=== PATIENT | female | born 1950 | race Caucasian/White ===

== ENCOUNTER 2019-08-29 07:01 | Day surgery (SDC) | payer OTHER | END 2019-08-29 12:45 | disposition home or self-care (01) | LOC: AMB-ENDOS 07:01 | DX: C18.7 Malignant neoplasm of sigmoid colon (principal); D12.5 Benign neoplasm of sigmoid colon ==

== ENCOUNTER 2019-09-11 10:09 | Inpatient (IN) | payer OTHER ==
[~2019-09-11] VITALS: Ht 165.1 cm; Wt 5.0 kg
[2019-09-11] MEDS ORDERED: NORVASC2.5 M1 PO (10:38)
[2019-09-11] MEDS ORDERED: AMBIEN5 MG PO (10:39)
[2019-09-21] MEDS ORDERED: OXYC1TAB9 PO (09:05)
[2019-09-21] MEDS ORDERED: HYOSCYAMINE0.125 M1 SL (09:05)
[2019-09-21] MEDS ORDERED: INTESTINEX680 M1 PO (09:06)
== END 2019-09-21 10:10 | disposition home or self-care (01) | DRG 331 ==
LOC: SURG 09-18 08:27 → O/R 09-18 08:27 → SURH 09-18 09:54 → SURG 09-18 16:38 → SURH 09-20 14:55 → SURG 09-20 15:27 → SURH 09-20 15:29
PROVIDERS: ADMIT Surgery
PROC: 0DBN4ZZ Excision of Sigmoid Colon, Percutaneous Endoscopic Approach (ICD-10-PCS; 2019-09-18)
PROC: 07BC4ZX Excision of Pelvis Lymphatic, Percutaneous Endoscopic Approach, Diagnostic (ICD-10-PCS; 2019-09-18)
PROC: 3E0F7GC Introduction of Other Therapeutic Substance into Respiratory Tract, Via Natural or Artificial Opening (ICD-10-PCS; 2019-09-18)
PROC: 0DBP4ZZ Excision of Rectum, Percutaneous Endoscopic Approach (ICD-10-PCS; principal; 2019-09-18 15:30)
DX: C19 Malignant neoplasm of rectosigmoid junction (principal); I11.9 Hypertensive heart disease without heart failure; J45.20 Mild intermittent asthma, uncomplicated

== ENCOUNTER 2020-08-20 05:21 | Day surgery (SDC) | payer OTHER ==
[~2020-08-20 05:21] MED LIST: AMBIEN5 MG PO; HYOSCYAMINE0.125 M1 SL; INTESTINEX680 M1 PO; NORVASC2.5 M1 PO; OXYC1TAB9 PO
== END 2020-08-20 10:00 | disposition home or self-care (01) ==
LOC: AMB-ENDOS 05:21 → CIR.AMB 13:00
PROVIDERS: ATTEND Surgery
DX: K63.5 Polyp of colon (principal); Z20.822 Contact with and (suspected) exposure to COVID-19

== ENCOUNTER 2025-06-09 10:45 | Inpatient (IN) | payer OTHER ==
[~2025-06-09] VITALS: Ht 157.5 cm; Wt 69.4 kg
[2025-06-09 11:59] VITALS: BP 130/82
[2025-06-12] MEDS ORDERED: VISTASEAL DUAL APPICATOR 1 EACH APPL TOP ONE (08:00)
[2025-06-12] MEDS ORDERED: CLINDAMYCIN PHOSPHATE 150 MG/ML (600mg) IV ONE (08:00)
[2025-06-12] MEDS ORDERED: CHLORHEXIDINE GLUCONATE 120 ML BOTTLE TOP ONE (08:00)
[2025-06-12] MEDS ORDERED: POVIDONE-IODINE 118 ML BOTT TOP ONE (08:00)
[2025-06-12] MEDS ORDERED: METRONIDAZOLE/SODIUM CHLORIDE 500 MG/100 ML PIGGYBACK IV ONE (08:00)
[2025-06-12] MEDS ORDERED: THROMBIN,HU/FIBRINOGEN/CALCIUM 10 ML SYRINGE TOP ONE (08:00)
[2025-06-12] MEDS ORDERED: SUGAMMADEX SODIUM 200 MG/2 ML VIAL IV ONE (09:30)
[2025-06-12] MEDS ORDERED: MORPHINE SULFATE 4 MG/ML VIAL IV PRN (09:45)
[2025-06-12] MEDS ORDERED: OxyCODONE HCL 5 MG TABLET (ROXICODONE) PO PRN (09:45)
[2025-06-12] MEDS ORDERED: KETOROLAC TROMETHAMINE 30 MG VIAL IV ONE (09:45)
[2025-06-12] MEDS ORDERED: RINGERS SOLUTION,LACTATED 1,000 ML IV SCH (09:45)
[2025-06-12] MEDS ORDERED: KETOROLAC TROMETHAMINE 30 MG VIAL ONE (10:54)
[2025-06-12] MEDS ORDERED: ACETAMINOPHEN 500 MG GEL..CAP PO SCH (12:00)
[2025-06-12 12:56] LABS: BASO % 0.4 % (0.1-1.2); EOS # 0.03 (0.04-0.54); EOS % 0.2 % (0.7-7.0); LYMPH # 1.16 (1.18-3.74); LYMPH % 9.2 % (19.3-53.1); MEAN PLATELET VOLUME 10.70 fl (9.4-12.4); MONO # 0.64 (0.24-0.82); MONO % 5.1 % (4.7-12.5); NEUT # 10.60 (1.56-6.13); NEUT % 84.4 % (34.0-71.1); RED CELL DISTRIBUTION WIDTH 13.8 % (11.6-14.4)
[2025-06-12] MEDS ORDERED: SIMETHICONE 125 MG CAPSULE PO SCH (13:00)
[2025-06-12 13:33] LABS: BUN CREA RATIO 20.0 (7.0-25.0); CREATININE SERUM 0.56 mg/dL (0.55-1.02); GFR 105.53; GLUCOSE FASTING 118.0 mg/dL (65-100); OSMOLALITY SERUM 278.0 MOSM/KG (275-295)
[2025-06-12 14:09] VITALS: BP 125/64; O2SAT 95
[2025-06-12] MEDS ORDERED: CEFAZOLIN SODIUM 1,000 MG VIAL IV SCH (17:00)
[2025-06-12] MEDS ORDERED: METOCLOPRAMIDE HCL 5 MG/ML VIAL IV SCH (17:00)
[2025-06-12] MEDS ORDERED: CLINDAMYCIN PHOSPHATE 150 MG/ML (600mg) IV SCH (17:00)
[2025-06-12 18:16] VITALS: BP 136/72
[2025-06-12] MEDS ORDERED: DOCUSATE SODIUM 100MG CAP PO SCH (21:00)
[2025-06-12] MEDS ORDERED: FAMOTIDINE/PF 20 MG/2 ML VIAL IV PUSH SCH (21:00)
[2025-06-12] MEDS ORDERED: GABAPENTIN 300 MG CAPSULE PO SCH (21:00)
[2025-06-12] MEDS ORDERED: CELECOXIB 200 MG CAPSULE PO SCH (21:00)
[2025-06-13] VITALS: BP 126/75
[2025-06-13 01:56] LABS: BASO % 0.4 % (0.1-1.2); EOS # 0.21 (0.04-0.54); EOS % 2.2 % (0.7-7.0); LYMPH # 1.32 (1.18-3.74); LYMPH % 13.6 % (19.3-53.1); MEAN PLATELET VOLUME 10.90 fl (9.4-12.4); MONO # 0.75 (0.24-0.82); MONO % 7.7 % (4.7-12.5); NEUT # 7.36 (1.56-6.13); NEUT % 75.8 % (34.0-71.1); RED CELL DISTRIBUTION WIDTH 13.6 % (11.6-14.4)
[2025-06-13 02:17] LABS: BUN CREA RATIO 15.0 (7.0-25.0); CREATININE SERUM 0.61 mg/dL (0.55-1.02); GFR 95.61; GLUCOSE FASTING 100.0 mg/dL (65-100); OSMOLALITY SERUM 284.0 MOSM/KG (275-295)
[2025-06-13 08:49] VITALS: BP 127/73
[2025-06-13] MEDS ORDERED: ENOXAPARIN SODIUM 40 MG/0.4 ML SYRINGE SUBCUTANEO SCH (09:00)
== END 2025-06-13 12:34 | disposition home or self-care (01) | DRG 743 ==
LOC: ADM 10:45 → EDSTATUS 10:45 → OB/GYN 06-12 07:00 → O/R 06-12 09:00 → OB/GYN 06-12 10:45
PROVIDERS: Obstetrics & Gynecology; ADMIT Obstetrics & Gynecology Gynecologic Oncology; ATTEND Obstetrics & Gynecology Gynecologic Oncology
PROC: 0DBU4ZZ Excision of Omentum, Percutaneous Endoscopic Approach (ICD-10-PCS; 2025-06-12)
PROC: 0UT74ZZ Resection of Bilateral Fallopian Tubes, Percutaneous Endoscopic Approach (ICD-10-PCS; 2025-06-12)
PROC: 0UT24ZZ Resection of Bilateral Ovaries, Percutaneous Endoscopic Approach (ICD-10-PCS; 2025-06-12)
PROC: 8E0W4CZ Robotic Assisted Procedure of Trunk Region, Percutaneous Endoscopic Approach (ICD-10-PCS; 2025-06-12)
PROC: 3E1M48Z Irrigation of Peritoneal Cavity using Irrigating Substance, Percutaneous Endoscopic Approach (ICD-10-PCS; 2025-06-12)
PROC: 0UT94ZZ Resection of Uterus, Percutaneous Endoscopic Approach (ICD-10-PCS; principal; 2025-06-12 07:00)
DX: D25.1 Intramural leiomyoma of uterus (principal); N72 Inflammatory disease of cervix uteri
CPT/HCPCS: 58571; 58953; 49084; S2900